=== PATIENT | female | born 1990 | race Two or more races ===

== ENCOUNTER 2021-01-18 00:15 | Inpatient (IN) | payer MEDICAID ==
[2021-01-18] VITALS (19 sets, daily range): BP systolic 90–172; BP diastolic 50–87
[~2021-01-18] VITALS: Ht 165.1 cm; Wt 100.0 kg
[2021-01-18] MEDS ORDERED: acetaminophen 325mg tablet PO STA (00:23)
[2021-01-18] MEDS ORDERED: potassium Cl 20 mEq SR tablet PO PRN ×2 (01:25)
[2021-01-18] MEDS ORDERED: mag hydrox/Alum hydrox/simeth 30ml oral suspension PO PRN (01:25)
[2021-01-18] MEDS ORDERED: potassium Cl 40MEQ/1/2NS 520ml 520 ML IV PRN ×2 (01:25)
[2021-01-18] MEDS ORDERED: morphine 2 MG/ML inj. syringe IV PRN ×2 (01:25→11:50)
[2021-01-18] MEDS ORDERED: acetaminophen 325mg tablet PO PRN (01:25)
[2021-01-18] MEDS ORDERED: ondansetron/PF 4mg/2ml inj IV PRN ×2 (01:25→11:50)
[2021-01-18] MEDS ORDERED: magnesium hydroxide 30ml (MOM) UD suspension PO PRN (01:25)
[2021-01-18] MEDS ORDERED: ketorolac trometh. 30mg/ml inj. IV ONE (02:00)
[2021-01-18] MEDS: normal saline 1000ml 1,000 ML IV SCH ×3 (02:00→19:34)
[2021-01-18] MEDS: CefTRIAXone/D5W-Rocephin 1gm 50 ML IV SCH (02:07)
[2021-01-18] MEDS ORDERED: NO HOME MEDS (04:40)
--- NOTE | 2021-01-18 06:34 | NUR ---
Problems reprioritized. Patient report given, questions answered & plan of care reviewed with FRANK. Addendum: 01/18/21 at 0634 by Roshan Holt RN Amended: Links added.
[2021-01-18] MEDS: K and/or MAG REPLACEMENT MC SCH ×2 (08:00→19:05)
[2021-01-18 08:08] LABS: ALBUMIN 2.6 G/DL (3.4-5.0); ALBUMIN/GLOBULIN RATIO 0.6 (1.1-1.5); ALKALINE PHOSPHATASE 64 IU/L (46-116); BLOOD UREA NITROGEN 12 MG/DL (7-18); BUN/CREATININE RATIO 11.7 (6.6-38.0); CALCIUM 7.9 MG/DL (8.5-10.1); CHLORIDE 108 MMOL/L (99-107); CREATININE 1.03 MG/DL (0.40-0.90); PRE OP ALT 24 U/L (30-65); PRE OP ANION GAP 8 (8-16); PRE OP AST 11 U/L (10-37); PRE OP BILIRUB, TOTAL 0.6 MG/DL (0.0-1.0); PRE OP GLUCOSE 113 MG/DL (70-104); PRE OP POTASSIUM 3.7 MMOL/L (3.4-5.1); PRE OP SODIUM 143 MMOL/L (135-145); TOTAL CARBON DIOXIDE 26.7 MMOL/L (24-32); TOTAL PROTEIN 6.8 G/DL (6.4-8.2); eGFR 63 ML/MIN
[2021-01-18] MEDS: ketorolac trometh. 30mg/ml inj. IV SCH ×3 (08:45→19:02)
[2021-01-18 11:04] LABS: BASOPHILS % (AUTO) 0.2 % (0-1); EOSINOPHILS % (AUTO) 0.1 % (0-6); LYMPHOCYTES # (AUTO) 1.3 X10'3 (1.1-4.8); LYMPHOCYTES % (AUTO) 6.5 % (21-51); MEAN CORPUSCULAR HGB CONC 30.7 g/dL (33.0-36.5); MEAN CORPUSCULAR VOLUME 68.4 FL (78-98); MEAN PLATELET VOLUME 8.2 FL (7.4-10.4); MONOCYTES # (AUTO) 0.9 X10'3 (0-0.9); MONOCYTES % (AUTO) 4.3 % (2-12); NEUTROPHILS # (AUTO) 17.7 X10'3 (1.8-7.7); NEUTROPHILS % (AUTO) 88.9 % (42-75); PRE OP HEMATOCRIT 29.7 % (35.0-45.0); PRE OP PLATELET COUNT 357 X10'3 (140-440); RED BLOOD COUNT 4.34 X10'6 (4.20-5.60); RED CELL DISTRIBUTION WIDTH 18.1 % (11.5-14.5)
[2021-01-18 11:07] LABS: PRE OP HEMOGLOBIN 9.1 g/dL (12.0-16.0)
[2021-01-18] MEDS ORDERED: iohexol 300 MG/1 ML 50ml polymer ONE (11:08)
--- NOTE | 2021-01-18 11:13 | NUR ---
PAGER ID: [phone] MESSAGE: ALESHIA Johnson [phone] Carlene Johnston Critical Preop WBC of 20 and Hgb of 9.1. OR notified already. Thank you
[2021-01-18 11:39] LABS: ANISOCYTOSIS 2+; MICROCYTOSIS 2+; PLATELET ESTIMATE NORMAL
[2021-01-18 11:40] LABS: HYPOCHROMASIA 1+
[2021-01-18] MEDS ORDERED: ringers solution, lacted 1,000 ML IV SCH (11:50)
[2021-01-18] MEDS ORDERED: labetalol 20mg/4ml (5mg/ml) syringe IV PRN (11:50)
[2021-01-18] MEDS ORDERED: meperidine/PF 25mg/ml syringe IV PRN ×3 (11:50)
[2021-01-18] MEDS ORDERED: morphine 4 MG/ML inj SYRINge IV PRN (11:50)
[2021-01-18] MEDS ORDERED: proCHLORperazine 10 MG/2 ml inj IV PRN (11:50)
[2021-01-18] MEDS ORDERED: hydrALAZINE 20mg/ml inj. IV PRN (11:50)
[2021-01-18] MEDS ORDERED: acetaminophen 1,000mg/100ml IV 100 ML IV PRN (11:50)
[2021-01-18] MEDS ORDERED: midazolam 1 mg/ML 2ml injection ONE (11:59)
[2021-01-18] MEDS ORDERED: fentaNYL/PF 50MCG/1 ML 2ML syringe ONE (11:59)
[2021-01-18] MEDS ORDERED: dexamethasone sod phosphate 4mg/ml inj. ONE (12:16)
[2021-01-18] MEDS ORDERED: ondansetron/PF 4mg/2ml inj ONE (12:16)
[2021-01-18] MEDS ORDERED: LIDOcaine 2% (20mg/ml) 5ml vial ONE (12:16)
[2021-01-18] MEDS ORDERED: propofol inj 20 ML IV ONE (12:16)
--- NOTE | 2021-01-18 12:30 | NUR ---
ADMITTED TO PACU FROM OR ACCOMPANIED BY ANESTHESIA. INTIAL PHYSICAL ASSESSMENT DONE AND RECORDED. REPORT RECEIVED FROM ANESTHESIA.
--- NOTE | 2021-01-18 13:19 | NUR ---
Received report from PACU . Patient is A&Ox4. She has been unable to void and and began menstruating. She had a stent placed and had a good recovery.
--- NOTE | 2021-01-18 13:20 | NUR ---
PACU DISCHARGE CRITERIA MET, REPORT GIVEN TO FLOOR. DENIES PAIN OR DISCOMFORT, TRANSFERRED TO ROOM IN STABLE GOOD CONDITION.
--- NOTE | 2021-01-18 16:02 | NUR ---
PAGER ID: [phone] MESSAGE: Jessika Billy [phone] - Carlene Johnston - 348B - Patient returned from surgery with no diet ordered. Please advise regarding type of diet for this patient.
--- NOTE | 2021-01-18 18:22 | NUR ---
Problems reprioritized. Patient report given, questions answered & plan of care reviewed with May MONK .
--- NOTE | 2021-01-18 18:30 | NUR ---
Patient in room [facility] 348. I have received report from Madisyn MONK and Jessika MONK and had the opportunity to ask questions and assume patient care.
[2021-01-18] MEDS: morphine 2 MG/ML inj. syringe IV PRN ×2 (18:51→22:41)
--- NOTE | 2021-01-18 23:51 | NUR ---
Patient c/o pain unrelieved by morphine.Requested norco from . refused.
[2021-01-19] VITALS: BP 117/64
[2021-01-19] MEDS: ketorolac trometh. 30mg/ml inj. IV SCH ×3 (02:17→14:00)
[2021-01-19] MEDS: morphine 2 MG/ML inj. syringe IV PRN (02:24)
[2021-01-19] MEDS: CefTRIAXone/D5W-Rocephin 1gm 50 ML IV SCH (02:45)
[2021-01-19] MEDS ORDERED: morphine 2 MG/ML inj. syringe IV ONE (03:00)
[2021-01-19 05:57] LABS: BASOPHILS % (AUTO) 0.1 % (0-1); EOSINOPHILS % (AUTO) 0 % (0-6); HEMATOCRIT 26.7 % (35.0-45.0); HEMOGLOBIN 8.3 g/dl (12.0-16.0); LYMPHOCYTES # (AUTO) 1.2 X10'3 (1.1-4.8); LYMPHOCYTES % (AUTO) 7.4 % (21-51); MEAN CORPUSCULAR HEMOGLOBIN 20.9 PG (27.0-31.0); MEAN CORPUSCULAR HGB CONC 31.1 g/dL (33.0-36.5); MEAN CORPUSCULAR VOLUME 67.2 FL (78-98); MEAN PLATELET VOLUME 7.6 FL (7.4-10.4); MONOCYTES # (AUTO) 0.7 X10'3 (0-0.9); MONOCYTES % (AUTO) 4.3 % (2-12); NEUTROPHILS # (AUTO) 14.5 X10'3 (1.8-7.7); NEUTROPHILS % (AUTO) 88.2 % (42-75); PLATELET COUNT 343 X10'3 (140-440); RED BLOOD COUNT 3.97 X10'6 (4.20-5.60); RED CELL DISTRIBUTION WIDTH 17.5 % (11.5-14.5); WHITE BLOOD COUNT 16.4 X10'3 (4.5-11.0)
[2021-01-19 06:03] LABS: ALANINE AMINOTRANSFERASE 30 U/L (12-78); ALBUMIN 2.5 G/DL (3.4-5.0); ALBUMIN/GLOBULIN RATIO 0.6 (1.1-1.5); ALKALINE PHOSPHATASE 57 IU/L (46-116); ANION GAP 8 (8-16); ASPARTATE AMINO TRANSFERASE 15 U/L (10-37); BILIRUBIN,TOTAL 0.3 MG/DL (0.1-1.0); BLOOD UREA NITROGEN 13 MG/DL (7-18); BUN/CREATININE RATIO 14.6 (6.6-38.0); CALCIUM 8.4 MG/DL (8.5-10.1); CHLORIDE 109 MMOL/L (99-107); CREATININE 0.89 MG/DL (0.40-0.90); GLUCOSE 141 MG/DL (70-104); POTASSIUM 3.7 MMOL/L (3.5-5.1); SODIUM 141 MMOL/L (135-145); TOTAL CARBON DIOXIDE 24.1 MMOL/L (24-32); TOTAL PROTEIN 6.6 G/DL (6.4-8.2); eGFR 75 ML/MIN
--- NOTE | 2021-01-19 06:40 | NUR ---
Problems reprioritized. Patient report given, questions answered & plan of care reviewed with Mi MONK and Jessika MONK.
--- NOTE | 2021-01-19 06:59 | NUR ---
Patient in room [facility] 348. I have received report from ALESHIA Olvera and had the opportunity to ask questions and assume patient care.
[2021-01-19 07:20] LABS: PLATELET ESTIMATE NORMAL
[2021-01-19 07:21] LABS: ANISOCYTOSIS 1+; HYPOCHROMASIA 1+; MICROCYTOSIS 2+; POLYCHROMASIA 1+
[2021-01-19] MEDS: normal saline 1000ml 1,000 ML IV SCH (07:37)
[2021-01-19] MEDS: K and/or MAG REPLACEMENT MC SCH (07:54)
[2021-01-19 07:59] VITALS: BP 97/59
[2021-01-19] MEDS ORDERED: OXYC-145 PO (09:39)
--- NOTE | 2021-01-19 11:04 | NUR ---
Patient had no wounds on admission. Addendum: 01/19/21 at 1107 by Jessika Maravilla RN Amended: Links added.
[2021-01-19] MEDS ORDERED: LEVO500T89 PO (11:12)
[2021-01-19 11:33] VITALS: BP 98/59
--- NOTE | 2021-01-19 12:21 | NUR ---
PAGER ID: [phone] MESSAGE: Jessika - [phone] - Carlene Johnston [facility] 348B - Levofloxacin Rx warning for prolonged QT. Rx transmitted to patient pharmacy.
--- NOTE | 2021-01-19 16:45 | NUR ---
Patient discharged to home with as her ride. Patient alert and oriented during discharge and throughout education. Patient waited for to arrive from [facility] for 5 hours. All patients questions answered. Patient sent with belongings and in a wheelchair to the front door.
--- NOTE | 2021-01-19 17:42 | NUR ---
Orientee documentation: I have reviewed and agree with all interventions, assessments performed and documented by ALESHIA Rosen.
[2021-01-19] MEDS ORDERED: lactobacillus rhamnosus 10,000 MMU CELLS/CAPSULE PO SCH (20:00)
--- NOTE | 2021-01-20 14:19 | NUR ---
CASE MANAGEMENT DISCHARGE FOLLOW UP: T/c to pt, no answer, left message requesting callback.
== END 2021-01-19 16:45 | disposition home or self-care (01) | DRG 720 ==
LOC: ER 00:17 → ED HOLD 01:25 → EDBEDREQSVC 03:29 → SUR 3N 03:45
PROVIDERS: ADMIT Internal Medicine; ATTEND Internal Medicine
PROC: 0T778DZ Dilation of Left Ureter with Intraluminal Device, Via Natural or Artificial Opening Endoscopic (ICD-10-PCS; 2021-01-18)
PROC: BT1F1ZZ Fluoroscopy of Left Kidney, Ureter and Bladder using Low Osmolar Contrast (ICD-10-PCS; principal; 2021-01-18 11:54)
DX: A41.9 Sepsis, unspecified organism (principal); N13.6 Pyonephrosis; D50.9 Iron deficiency anemia, unspecified; Z20.822 Contact with and (suspected) exposure to COVID-19; Z87.442 Personal history of urinary calculi; Z88.0 Allergy status to penicillin
CPT/HCPCS: 36415; 74420; 76000; 80053; 82948; 84145; 85008; 85025; 85730; 87081; 87426; 99285; A4618; C1758; C1769; C2617; G0378; J0696; J1100; J1885; J2001; J2250; J2270; J2405; J2704; J3010; J7030; Q9967